=== PATIENT | male | born 1975 | race Hispanic/Latino ===

== ENCOUNTER 2021-02-14 15:47 | Outpatient (CLI) | payer BC | END 2021-02-14 15:48 | disposition home or self-care (01) | LOC: CTENTCT 15:47 | PROVIDERS: ATTEND Student in an Organized Health Care Education/Training Program | DX: J01.90 Acute sinusitis, unspecified (principal) | CPT/HCPCS: 70486 ==

== ENCOUNTER 2022-07-09 10:34 | Outpatient (CLI) | payer BC, OTHER | END 2022-07-09 10:35 | disposition home or self-care (01) | LOC: SCSMRI 10:34 | DX: G43.509 Persistent migraine aura without cerebral infarction, not intractable, without status migrainosus (principal) | CPT/HCPCS: 70551 ==